=== PATIENT | female | born 1955 | race Caucasian/White ===

== ENCOUNTER 2024-11-07 15:13 | Emergency (ER) | payer OTHER ==
--- NOTE | 2024-11-07 17:11 | RAD REPORT ---
EXAMINATION: TWO VIEW CHEST XR CLINICAL INDICATION: Cough;Congestion TECHNIQUE: 2 views of the chest was performed. COMPARISON: 12/01/2009 FINDINGS: The lungs are well inflated and clear. The heart is moderately enlarged. No displaced fractures evide nt. IMPRESSION: No acute abnormalities.
--- NOTE | 2024-11-07 17:17 | EDPHYS ---
Physician Documentation [facility] Name: Maribell Pena Age: 69 yrs Sex: Female : 1955 Arrival Date: 11/07/2024 Time: 15:13 Bed IW2 Private MD: ED Physician James Do HPI: 11/07 15:54 This 69 yrs old Female presents to ER via Ambulatory with complaints of Chest kb Congestion, Sinus Problem. 15:54 Patient is a 69-year-old female who presents for cough, congestion, nausea and malaise kb that started 3 to 4 weeks ago. States she is not getting any better and just feels bad. Denies shortness of breath or chest pain. Denies fever.. Historical: - Allergies: 15:38 No Known Allergies; me1 - PMHx: 15:38 Hypertensive disorder; me1 - PSHx: 15:38 None; me1 - Immunization history:: Adult Immunizations up to date. - Infectious Disease History:: Denies. - Social history:: Smoking status: Patient/guardian denies using tobacco, but has a distant history of tobacco abuse. ROS: 15:54 Constitutional: As per HPI kb Exam: 15:54 Constitutional: This is a well developed, well nourished patient who is awake, alert, kb and in no acute distress. Head/Face: Normocephalic, atraumatic. ENT: Moist Mucous membranes Cardiovascular: Regular rate Respiratory: Respirations even and unlabored. No increased work of breathing. Talking in full sentences Skin: Warm, dry with normal turgor. Normal color. MS/ Extremity: Pulses equal, no cyanosis. Neurovascular intact. Full, normal range of motion. Neuro: Awake and alert, GCS 15, oriented to person, place, time, and situation. 15:54 ENT: External ear(s): are unremarkable, Ear canal(s): are normal, TM's: are normal, Posterior pharynx: is normal, Vital Signs: 15:36 BP 188 / 98; Pulse 88; Resp 17; Temp 98.3; Pulse Ox 99% ; Weight 54.43 kg; Height 5 ft. me1 4 in. ; Pain 2/10; 15:36 Body Mass Index 20.60 (54.43 kg, 162.56 cm) me1 15:36 Pain Scale: Adult me1 MDM: 15:20 Medical Screening Exam initiated kb 15:55 Differential diagnosis: Pneumonia, sinusitis, allergic rhinitis upper EXTR infection, kb bronchitis. Data reviewed: vital signs, nurses notes. Test considered but Not performed: Labs: CBC, CMP considered the patient is nontoxic in appearance, afebrile. 17:14 Counseling: I had a detailed discussion with the patient and/or guardian regarding the kb historical points, exam findings, and any diagnostic results supporting the discharge/admit diagnosis, radiology results, the need for outpatient follow up, a family practitioner, to return to the emergency department if symptoms worsen or persist or if there are any questions or concerns that arise at home. 11/07 15:35 Order name: Chest Pa And Lat (2 Views) XRAY; Complete Time: 17:14 kb Administered Medications: 18:00 Drug: Amoxicillin-Clavulanate PO 875 mg PO once Route: PO; me1 18:02 Follow up: Response: No adverse reaction 18:00 Drug: predniSONE PO 40 mg PO once Route: PO; me1 18:02 Follow up: Response: No adverse reaction ss Disposition Summary: 11/07/24 17:17 Discharge Ordered Notes: Location: Home kb Condition: Stable kb Diagnosis - Acute sinusitis, unspecified kb Followup: kb - With: Emergency Department - When: As needed - Reason: Worsening of condition Followup: kb - With: Private Physician - When: 2 - 3 days - Reason: Recheck today's complaints, Continuance of care, Re-evaluation by your physician Discharge Instructions: - Discharge Summary Sheet kb - Sinusitis, Adult, [id number] kb Forms: - Medication Reconciliation Form kb - Antibiotic Education kb - Prescription Opioid Use kb - Patient Portal Instructions kb - Leadership Thank You Letter kb Prescriptions: - Augmentin 875-125 mg Oral Tablet - take 1 tablet ORAL route every 12 hours for 10 days; 20 tablet; Refills: 0, kb Product Selection Permitted - Prednisone 20 mg Oral Tablet - take 1 tablet ORAL route once daily for 5 days; 5 tablet; Refills: 0, Product kb Selection Permitted Signatures: Dispatcher [employer] Christina James, Francesca Lara RN RN la1 Sheridan Pedersen RN Corrections: (The following items were deleted from the chart) 15:35 15:35 Chest Pa And Lat (2 Views)+[email or web address] ordered. EDMS EDMS
--- NOTE | 2024-11-07 17:17 | ER ---
Nurse's Notes [facility] Name: Maribell Pena Age: 69 yrs Sex: Female : 1955 Arrival Date: 11/07/2024 Time: 15:13 Bed IW2 Private MD: Diagnosis: Acute sinusitis, unspecified Presentation: 11/07 15:36 Chief complaint: Patient states: congestion, cough, nausea, body aches and headache for me1 3-4 weeks. Coronavirus screen: Vaccine status: Patient reports receiving the 2nd dose of the covid vaccine. Ebola Screen: No symptoms or risks identified at this time. Initial Sepsis Screen: Does the patient meet any 2 criteria? No. Patient's initial sepsis screen is negative. Does the patient have a suspected source of infection? No. Patient's initial sepsis screen is negative. Risk Assessment: Do you want to hurt yourself or someone else? Patient reports no desire to harm self or others. Onset of symptoms is unknown. 15:36 Method Of Arrival: Ambulatory me1 15:36 Acuity: FABBY 3 me1 Historical: - Allergies: 15:38 No Known Allergies; me1 - PMHx: 15:38 Hypertensive disorder; me1 - PSHx: 15:38 None; me1 - Immunization history:: Adult Immunizations up to date. - Infectious Disease History:: Denies. - Social history:: Smoking status: Patient/guardian denies using tobacco, but has a distant history of tobacco abuse. Screenin:01 Abuse screen: Denies threats or abuse. Denies injuries from another. Nutritional ss screening: No deficits noted. Tuberculosis screening: Never had TB. Vital Signs: 15:36 BP 188 / 98; Pulse 88; Resp 17; Temp 98.3; Pulse Ox 99% ; Weight 54.43 kg; Height 5 ft. me1 4 in. ; Pain 2/10; 15:36 Body Mass Index 20.60 (54.43 kg, 162.56 cm) me1 15:36 Pain Scale: Adult me1 ED Course: 15:18 Patient arrived in ED. cj3 15:20 [facility] Gordon [facility]C [facility] kb 15:20 James Do MD is Attending Physician. kb 15:38 Triage completed. me1 15:38 Arm band placed on Patient placed in waiting room. [facility] [place] 16:16 Chest Pa And Lat (2 Views) XRAY In Process Unspecified. EDID 18:00 Francesca Yao, RN is Primary Nurse. [facility] [place] 18:00 No provider procedures requiring assistance completed. Patient did not have IV access ss during this emergency room visit. 18:01 Patient has correct armband on for positive identification. ss Administered Medications: 18:00 Drug: Amoxicillin-Clavulanate PO 875 mg PO once Route: PO; [facility] [place] 18:02 Follow up: Response: No adverse reaction ss 18:00 Drug: predniSONE PO 40 mg PO once Route: PO; mt1 18:02 Follow up: Response: No adverse reaction ss Outcome: 17:17 Discharge ordered by MD. kb 18:00 Discharged to home ambulatory, 18:00 Condition: good 18:00 Discharge instructions given to patient, family, Instructed on discharge instructions, follow up and referral plans. medication usage, Demonstrated understanding of instructions, follow-up care, medications, Prescriptions given X 1, 18:02 Patient left the ED. Signatures: Dispatcher [employer] EDID Christina Gordon, CONSUMER AFFAIRS SPECIALIST-C CONSUMER AFFAIRS SPECIALIST-Sheridan Poole, RN RN Francesca Yao, RN RN mt1 Elisha Galvin cj3
[2024-11-07] MEDS ORDERED: AMOX/K CLAV 875 MG TAB ONE (17:56)
[2024-11-07] MEDS ORDERED: predniSONE 20 MG TAB ONE (17:56)
[2024-11-09 07:37] VITALS: BP 188/98; TEMP 98.3; O2SAT 99
== END 2024-11-07 18:02 | disposition home or self-care (01) ==
LOC: ER 15:13
DX: J01.90 Acute sinusitis, unspecified (principal)
CPT/HCPCS: 71046; 99283; J7512